=== PATIENT | male | born 1975 | race Caucasian/White ===

== ENCOUNTER 2021-11-04 16:05 | Emergency (ER) | payer MEDICAID ==
[~2021-11-04] VITALS: Ht 170.2 cm; Wt 118.6 kg
[~2021-11-04 16:05] MED LIST: NOCURR
[2021-11-04] MEDS ORDERED: ONDANSETRON HCL 4 MG/2 ML VIAL IM ONE (16:45)
[2021-11-04] MEDS ORDERED: HYDROmorphone 2 MG/ML VIAL IM ONE (16:45)
[2021-11-04] MEDS ORDERED: DOXYCYCLINE HYCLATE 100 MG TABLET PO ONE (16:45)
[2021-11-04] MEDS ORDERED: CEPHALEXIN MONOHYDRATE 500 MG CAPSULE PO ONE (16:45)
[2021-11-04] MEDS ORDERED: LIDOCAINE 1% 10 ML VIAL SQ ONE (16:45)
[2021-11-04 16:53] LABS: BASOPHILS % (AUTO) 0.6 % (0.0-2.0); EOSINOPHILS % (AUTO) 2.9 % (1.0-6.0); HEMATOCRIT 49.7 % (41-53); HEMOGLOBIN 16.4 g/dL (13.5-17.5); LYMPHOCYTES # (AUTO) 2.4 K/uL (1.0-4.8); LYMPHOCYTES % (AUTO) 19.5 % (22.0-44.0); MEAN CORPUSCULAR HEMOGLOBIN 29.6 pg (26.0-34.0); MEAN CORPUSCULAR VOLUME 90 fL (80-100); MONOCYTES # (AUTO) 0.8 K/uL (0.1-1.0); MONOCYTES % (AUTO) 6.1 % (2.0-9.0); NEUTROPHILS # (AUTO) 8.8 K/uL (1.8-7.7); NEUTROPHILS % (AUTO) 70.9 % (40.0-70.0); PLATELET COUNT (AUTO) 339 K/uL (150-450); RED BLOOD CELL COUNT(AUTO) 5.55 MIL/uL (4.50-5.90); RED CELL DISTRIBUTION WIDTH 12.7 % (11.5-14.5)
[2021-11-04 17:06] LABS: ALANINE AMINOTRANSFERASE 47 U/L (12-78); ALBUMIN 3.5 g/dL (3.4-5.0); ALKALINE PHOSPHATASE 95 U/L (46-116); ANION GAP 2 mmol/L (8-16); ASPARTATE AMINOTRANSFERASE 27 U/L (15-37); BILIRUBIN,TOTAL 0.4 mg/dL (0.1-1.0); CALCIUM, TOTAL 10.1 mg/dL (8.8-10.5); CARBON DIOXIDE 34 mmol/L (22-29); CHLORIDE 98 mmol/L (98-107); CREATININE 0.93 mg/dL (0.60-1.30); SODIUM SERUM 134 mmol/L (136-145); TOTAL PROTEIN, SERUM 8.1 g/dL (6.4-8.2); UREA NITROGEN, BLOOD 9 mg/dL (7-18)
[2021-11-04 17:07] LABS: GLOMERULAR FILTR. RATE CALC > 60 mL/min (>60); GLUCOSE,RANDOM 414 mg/dL (70-110)
[2021-11-04 17:17] VITALS: BP 136/89
[2021-11-04] MEDS ORDERED: CefTRIAXone 1 GM/DEXTROSE 50 ML IV ONE (18:00)
[2021-11-04] MEDS ORDERED: SODIUM CHLORIDE 0.9% 1,000 ML IV ONE (18:00)
[2021-11-04] MEDS ORDERED: INSULIN REGULAR, HUMAN 100 UNITS/ML IVP ONE (18:00)
[2021-11-04] MEDS ORDERED: HYDROmorphone 2 MG/ML VIAL IVP ONE (19:00)
[2021-11-04] MEDS ORDERED: IBUP-1554 PO (19:42)
[2021-11-04] MEDS ORDERED: POLY238P PO (19:42)
[2021-11-04] MEDS ORDERED: METF-1211 PO (19:42)
[2021-11-04] MEDS ORDERED: METR500 PO (19:42)
[2021-11-04] MEDS ORDERED: CEPH-558 PO (19:42)
[2021-11-04] MEDS ORDERED: HYDR-4723 PO (19:42)
[2021-11-04 19:51] LABS: GLUCOMETER DEV NAME(LOC) ERT.5; GLUCOSE,POINT OF CARE 237 MG/DL (70-110)
== END 2021-11-04 20:08 | disposition home or self-care (01) ==
LOC: EMS 16:07
DX: K61.1 Rectal abscess (principal); E11.9 Type 2 diabetes mellitus without complications
CPT/HCPCS: 46040; 99284; 96365; 96375; 96361; 80053; 82962; 85025; 36415; 96372; J0696; J1170; J1815; J2405; J3490; J7030; 96374

== ENCOUNTER 2021-11-07 08:56 | Emergency (ER) | payer MEDICAID ==
[~2021-11-07] VITALS: Ht 170.2 cm; Wt 119.5 kg
[~2021-11-07 08:56] MED LIST changes: +CEPH-558 PO; +HYDR-4723 PO; +IBUP-1554 PO; +METF-1211 PO; +METR500 PO; -NOCURR; +POLY238P PO
[2021-11-07 09:34] VITALS: BP 136/93
== END 2021-11-07 09:44 | disposition home or self-care (01) ==
LOC: EMS 08:58
DX: Z48.00 Encounter for change or removal of nonsurgical wound dressing (principal); F17.210 Nicotine dependence, cigarettes, uncomplicated
CPT/HCPCS: 99281; Z7502

== ENCOUNTER 2024-01-20 20:14 | Emergency (ER) | payer MEDICAID, OTHER ==
[~2024-01-20] VITALS: Ht 167.6 cm; Wt 113.6 kg
[~2024-01-20 20:14] MED LIST changes: +HYDR-4062 PO; -HYDR-4723 PO; -POLY238P PO
[2024-01-20 20:47] VITALS: BP 162/102; PULSE 98; RESP 20; TEMP 98.5; O2SAT 99
[2024-01-20] MEDS ORDERED: PENI500T2 PO (21:15)
[2024-01-20] MEDS ORDERED: IBUP-1554 PO (21:15)
[2024-01-20] MEDS: ACETAMINOPHEN/CODEINE 300-30 MG TABLET PO ONE (21:19)
[2024-01-20] MEDS: CEPHALEXIN MONOHYDRATE 500 MG CAPSULE PO ONE (21:19)
[2024-01-20] MEDS: IBUPROFEN 600 MG TABLET PO ONE (21:20)
== END 2024-01-20 21:31 | disposition home or self-care (01) ==
LOC: EMS 20:14
DX: K02.9 Dental caries, unspecified (principal)
CPT/HCPCS: 99284; Z7502; Z7610